=== PATIENT | female | born 1975 | race Caucasian/White ===

== ENCOUNTER 2017-05-06 16:48 | Emergency (ER) | payer SELFPAY | END 2017-05-06 17:37 | disposition left against medical advice (07) | LOC: D.ER 16:48 | DX: R51 Headache (principal) ==

== ENCOUNTER 2017-05-25 15:07 | Emergency (ER) | payer SELFPAY | END 2017-05-25 18:40 | disposition left against medical advice (07) | LOC: D.ER 15:07 | DX: S89.90XA Unspecified injury of unspecified lower leg, initial encounter (principal); X58.XXXA Exposure to other specified factors, initial encounter; Y93.89 Activity, other specified; Y92.89 Other specified places as the place of occurrence of the external cause ==

== ENCOUNTER 2017-06-16 12:28 | Emergency (ER) | payer MEDICAID | END 2017-06-16 14:43 | disposition home or self-care (01) | LOC: D.ER 12:28 | DX: S82.001A Unspecified fracture of right patella, initial encounter for closed fracture (principal); V09.9XXA Pedestrian injured in unspecified transport accident, initial encounter; Y93.89 Activity, other specified; Y92.89 Other specified places as the place of occurrence of the external cause; J06.9 Acute upper respiratory infection, unspecified; F17.200 Nicotine dependence, unspecified, uncomplicated ==

== ENCOUNTER 2017-09-01 08:51 | Emergency (ER) | payer MEDICAID | END 2017-09-01 10:08 | disposition home or self-care (01) | LOC: D.ER 08:51 | DX: M54.5 Low back pain (principal); M25.561 Pain in right knee; I10 Essential (primary) hypertension; F17.200 Nicotine dependence, unspecified, uncomplicated ==